=== PATIENT | female | born 1960 | race Caucasian/White ===

== ENCOUNTER 2017-08-24 07:07 | Emergency (ER) | payer MEDICAID ==
[2017-08-24] MEDS ORDERED: SODIUM CHLORIDE 0.9% 500 ML IV ONE (07:18)
[2017-08-24] MEDS ORDERED: ONDANSETRON HCL IV 4 MG/2 ML VIAL IV ONE (07:18)
--- NOTE | 2017-08-24 07:23 | Emergency Department Record ---
History of Present Illness - General Chief Complaint: Abdominal Pain Stated Complaint: RIGHT SIDE PAIN Time Seen by Provider: 08/24/17 07:13 Source: Patient Mode of Arrival: Ambulatory Limitations: No limitations - History of Present Illness Initial Comments: The patient is here due to R flank pain for 4 days. The pain is sharp and stabbing and starts in the RLQ and radiates to the R lower flank. It is not worse with any movement or bending and she denies any L sided AP, nausea, vomiting, fever or dysuria. The pain is no worse today but she is just sick of it and wants it to go away. The patient has had a normal appetite and the pain does not seem to be related to food. MD Complaint: Flank pain Onset/Timin -: Days(s) Location: R Flank, RLQ Radiation: R flank Migration to: RLQ Severity: Severe Severity scale (1-10): 8 Quality: Stabbing Consistency: Constant Improves With: Nothing Worsens With: Nothing Associated Symptoms: Denies other symptoms - Related Data Patient : No Previous Rx's Medication Instructions Recorded Cyclobenzaprine HCl [Flexeril] 10 mg PO TID PRN #20 tablet 08/24/17 Naproxen [Naprosyn] 500 mg PO BID #14 tablet. 08/24/17 Allergies Allergy/AdvReac Type Severity Reaction Status Date / Time codeine [CODEINE] Allergy Unknown VOMITING Verified 08/24/17 07:12 Travel Screening - Travel/Exposure Within Last 30 Days Have you traveled within the last 30 days?: No Review of Systems Constitutional: Denies: Chills, Fever Eyes: Denies: Eye discharge ENT: Denies: Congestion Respiratory: Denies: Cough, Dyspnea Past Medical History - SOCIAL HISTORY Smoking Status: Heavy tobacco smoker (>10/day) Alcohol Use: None Drug Use: None - RESPIRATORY Hx Respiratory Disorders: No - CARDIOVASCULAR Hx Cardio Disorders: Yes Hx Hypertension: Yes - NEURO Hx Neuro Disorders: No - GI Hx GI Disorders: Yes Hx Reflux: Yes Hx Pancreatitis: Yes Comment:: last episode 01/2014 - Hx Genitourinary Disorders: No - ENDOCRINE Hx Endocrine Disorders: No - MUSCULOSKELETAL Hx Musculoskeletal Disorders: No - PSYCH Hx Psych Problems: No - HEMATOLOGY/ONCOLOGY Hx Hematology/Oncology Disorders: No Family Medical History Any Significant Family History?: Yes Hx Dementia: Grandparents Physical Exam - General General Appearance: Alert, Oriented x3, Cooperative, No acute distress - Head Head exam: Atraumatic, Normocephalic, Normal inspection - Eye Eye exam: Normal appearance, PERRL - Neck Neck exam: Normal inspection, Full ROM. negative: Tenderness - Respiratory Respiratory exam: Normal lung sounds bilaterally. negative: Respiratory distress - Cardiovascular Cardiovascular Exam: Regular rate, Normal rhythm, Normal heart sounds - GI/Abdominal GI/Abdominal exam: Soft, Tenderness (There is mild RLQ tenderness mainly laterally. The abdomen is very soft.). negative: Rebound, Rigid - Extremities Extremities exam: Normal inspection, Full ROM, Normal capillary refill. negative: Tenderness Image of Full Body: 1 - Area of pain and tenderness. 2 - Area of pain and tenderness. - Back Back exam: Reports: Normal inspection, Paraspinal tenderness (There is lateral R flank tenderness just above the pelvic bone.). Denies: Vertebral tenderness - Neurological Neurological exam: Normal gait. negative: Abnormal gait Course Vital Signs 08/24/17 07:10 Temperature 97.5 F L Pulse Rate 94 H Respiratory 20 Rate Blood Pressure 135/99 Pulse Ox 96 - Reevaluation(s) Reevaluation #1: the patient is doing better at this time. Her pain is much improved but is still present. On exam the main tender area is now posteriorly above the pelvic iliac wing. I did explain to her that her results do not point to any significant surgical pathology. She is to rest at home and take the pain medicine and muscle relaxer and see her PCP for recheck. 08/24/17 08:51 Medical Decision Making - Data Complexity MDM Data: Labs Ordered and/or Reviewed, X-Ray Ordered and/or Reviewed - Lab Data Result diagrams: 08/24/17 07:20 08/24/17 07:20 - Radiology Data Radiology results: Report reviewed (CT: Neg for any acute pathology over the R lower abdomen. Neg for stone or appendicitis. There is a L adnexal cyst which I did discuss with the patient.) Disposition Disposition: Discharge Clinical Impression: Abdominal pain Qualifiers: Abdominal location: unspecified location Qualified Code(s): R10.9 - Unspecified abdominal pain Disposition: Home, Self-Care Condition: (2) Stable Instructions: Abdominal Pain (ED) Additional Instructions: Please take the Naprosyn and Flexeril for pain. Please see your family doctor for recheck and discuss the L ovary cyst and gallstones. Please return to the ER for any worsening symptoms, increased pain, fever or vomiting. Prescriptions: Cyclobenzaprine HCl [Flexeril] 10 mg PO TID PRN #20 tablet PRN Reason: Pain Naproxen [Naprosyn] 500 mg PO BID #14 tablet.dr Forms: Patient Portal Access Time of Disposition: 08:54 Quality - Quality Measures Quality Measures: N/A - Blood Pressure Screening View Details: Yes Does Patient Have Any of the Following: No Blood Pressure Classification: Hypertensive Reading Systolic Measurement: 135 Diastolic Measurement: 99 Screening for High Blood Pressure: < First Hypertensive BP, F/U Documented > [ G8950] First Hypertensive Follow-up Interventions: Referral to alternative/primary care provider.
[2017-08-24 07:33] LABS: BASO % 0.9 % (0-6); EOS % 4.1 % (0-6); GRAN % 44.6 % (47-80); HEMATOCRIT 44.6 % (35.0-47.0); HEMOGLOBIN 15.2 gm/dl (11.6-16.0); LYMPH % 39.2 % (16-45); MEAN CELL VOLUME 95.5 fl (81-97); MEAN CORPUSCULAR HEMOGLOBIN 32.5 pg (27-33); MEAN CORPUSCULAR HGB CONC 34.1 g/dl (32-36); MEAN PLATELET VOLUME 10.9 fl (7.4-10.4); MONO % 11.2 % (0-9); PLATELET COUNT 286 K/uL (130-400); RED BLOOD COUNT 4.67 M/uL (3.80-5.40); RED CELL DISTRIBUTION WIDTH 13.4 % (11.5-14.5); WHITE BLOOD COUNT W/O DIFF 6.5 K/uL (4.2-12.2)
[2017-08-24 07:35] LABS: URINE APPEARANCE CLEAR; URINE BILIRUBIN SMALL (NEGATIVE); URINE BLOOD NEGATIVE (NEGATIVE); URINE COLOR YELLOW; URINE GLUCOSE (UA) NEGATIVE (NEGATIVE); URINE KETONE NEGATIVE (NEGATIVE); URINE LEUKOCYTE ESTERASE NEGATIVE (NEGATIVE); URINE NITRITE NEGATIVE (NEGATIVE); URINE PROTEIN NEGATIVE (NEGATIVE); URINE UROBILINOGEN 0.2 E.U./dL (0.20 - 1.00)
[2017-08-24 07:45] LABS: BLOOD UREA NITROGEN 14 mg/dL (6-20); CREATININE 0.6 mg/dL (0.5-0.9); EST GLOMERULAR FILTRATION RATE > 60 mL/min
[2017-08-24 07:46] LABS: TOTAL PROTEIN 7.2 g/dL (6.6-8.7)
[2017-08-24 07:48] LABS: GLUCOSE,RANDOM 116 mg/dL (74-109)
[2017-08-24 07:50] LABS: ALBUMIN 4.3 g/dL (4.0-5.0); ALKALINE PHOSPHATASE 90 U/L (35-104); ALT/SGPT 18 U/L (<33); AST/SGOT 28 U/L (10.0-35.0)
[2017-08-24 07:51] LABS: LIPASE 16 U/L (13-60)
[2017-08-24 07:53] LABS: BILIRUBIN,DIRECT < 0.2 mg/dL (0-0.3)
[2017-08-24] MEDS ORDERED: KETOROLAC 30 MG/ML VIAL IVP ONE (07:54)
[2017-08-24] MEDS ORDERED: ACETAMINOPHEN 1,000 MG/100 ML BTL IVPB ONE (08:17)
--- NOTE | 2017-08-25 07:56 | CT SCAN REPORT ---
EXAM: EMERGENCY CT OF THE ABDOMEN AND PELVIS HISTORY: RIGHT FLANK PAIN, ACHING RIGHT LOWER QUADRANT PAIN FOR FOUR DAYS RADIATING POSTERIORLY. TECHNIQUE: Axial CT scan of the abdomen and pelvis was performed without oral or IV contrast. Comparison: CT of the abdomen and pelvis 09/23/15. FINDINGS: There is a single tiny calcification on the lower pole of the left kidney also present previously consistent with a tiny nonobstructing calculus. No other intrarenal calculi seen on either side. No hydronephrosis or hydroureter is seen on either side with no definite ureteral calculus seen on either side and no bladder calculus evident. Several uterine calcifications are again seen similar to before likely representing leiomyomatous involvement of the uterus. Relatively large low attenuation mass in the left adnexa again seen, previously measured at 5 cm in diameter and today measuring slightly smaller at about 4.3 cm, probably with some dilatation of the left fallopian tube as before as well. Recommend correlation with prior work-up. Appearance suspicious for some tiny calcified gallstones in the dependent portion of the gallbladder. No definite additional findings to suggest acute cholecystitis currently. Evaluation of the bowel and viscera is considerably limited without oral or IV contrast. Given this limitation, no definite hepatic, splenic, adrenal, or pancreatic mass identified. Moderate diverticulosis scattered throughout the colon, but no diverticulitis evident. The appendix is visualized and appears negative with no appendicitis evident. No free intraperitoneal air or free intraperitoneal fluid identified. Prominent facet joint arthropathy in the mid to lower lumbar spine and some spurring in the lower thoracic spine. IMPRESSION: 1. SINGLE TINY NONOBSTRUCTING CALCULUS LOWER POLE LEFT KIDNEY. NO HYDRONEPHROSIS OR URETERAL CALCULUS ON EITHER SIDE. 2. THE APPENDIX APPEARS NEGATIVE. 3. SCATTERED DIVERTICULOSIS THROUGHOUT THE COLON, BUT NO DIVERTICULITIS EVIDENT. 4. POSSIBLE CHOLELITHIASIS. THIS COULD BE FURTHER ASSESSED WITH A CURRENT GALLBLADDER ULTRASOUND IF CLINICALLY DESIRED. 5. PROBABLE SMALL CALCIFIED UTERINE LEIOMYOMAS BEFORE. 6. RELATIVELY LARGE LOW ATTENUATION MASS LEFT ADNEXA PRESUMABLY SOME FORM OF OVARIAN/ADNEXAL CYST, ACTUALLY SLIGHTLY SMALLER THAN BACK ON 09/23/15. THERE IS PROBABLY DILATATION OF THE LEFT FALLOPIAN TUBE WELL ALSO NOTED PREVIOUSLY. RECOMMEND CORRELATION WITH PRIOR GYNECOLOGIC WORK-UP. JOB NUMBER: [id number] [facility]
== END 2017-08-24 09:07 | disposition home or self-care (01) ==
LOC: ER 07:07
DX: R10.31 Right lower quadrant pain (principal); M54.5 Low back pain; N83.8 Other noninflammatory disorders of ovary, fallopian tube and broad ligament; I10 Essential (primary) hypertension; F17.210 Nicotine dependence, cigarettes, uncomplicated
CPT/HCPCS: 99284 ×2; 96374; 96375; 83690; 85025; 80076; 80048; 81003; 74176; J1885; J2405

== ENCOUNTER 2018-01-23 19:47 | Observation (INO) | payer MEDICAID ==
[2018-01-23] MEDS ORDERED: ONDANSETRON HCL IV 4 MG/2 ML VIAL IVP ONE (20:15)
[2018-01-23] MEDS ORDERED: 0.9 % SODIUM CHLORIDE 1000ML 1,000 ML IV SCH (20:15)
[2018-01-23] MEDS ORDERED: LORAZEPAM 2 MG/ML VIAL IV ONE (20:15)
--- NOTE | 2018-01-23 20:19 | Emergency Department Record ---
History of Present Illness - General Chief complaint: Nausea, Vomiting, Diarrhea Stated complaint: NAUSEA AND VOMITING Time Seen by Provider: 01/23/18 20:13 Source: Patient Mode of Arrival: Ambulatory Limitations: No limitations - History of Present Illness Initial comments: 57 yo female presents to ED for evaluation of nausea, vomiting, and loose stools that began 2-3 weeks ago, worsened today. Patient reports "I think it's my pancreas". Patient reports similar symptoms previously related to alcohol abuse. Patient reports that she drinks "a lot"daily, reports her last drink was this morning. Patient reports previous history of pancreatitis with similar symptoms, denies previous cholecystectomy. MD complaint: Abdominal pain, Nausea, Vomiting Onset/Timin -: Week(s) Description of Vomiting: Bilious Description of Diarrhea: Other Associated Abdominal Pain: Yes Location: LUQ Radiation: None Severity: Moderate Severity scale (1-10): 6 Quality: Aching Consistency: Intermittent Improves with: None Worsens with: Movement, Other Context: Alcohol abuse Associated Symptoms: Nausea/vomiting - Related Data Previous Rx's Medication Instructions Recorded Cyclobenzaprine HCl [Flexeril] 10 mg PO TID PRN #20 tablet 08/24/17 Naproxen [Naprosyn] 500 mg PO BID #14 tablet. 08/24/17 Allergies Allergy/AdvReac Type Severity Reaction Status Date / Time codeine [CODEINE] Allergy Unknown VOMITING Verified 08/24/17 07:12 Travel Screening - Travel/Exposure Within Last 30 Days Have you traveled within the last 30 days?: No - Travel Symptoms Symptom Screening: Diarrhea, Vomiting Review of Systems Constitutional: Denies: Chills, Fever, Malaise, Night sweats Eyes: Denies: Eye discharge, Eye pain ENT: Denies: Congestion, Ear pain, Epistaxis Respiratory: Denies: Cough, Dyspnea Cardiovascular: Denies: Chest pain, Dyspnea on exertion Endocrine: Denies: Fatigue, Heat or cold intolerance Gastrointestinal: Reports: Abdominal pain, Diarrhea, Nausea, Vomiting Genitourinary: Denies: Incontinence, Retention Musculoskeletal: Denies: Arthralgia, Back pain Skin: Denies: Bruising, Change in color Neurological: Denies: Abnormal gait, Confusion, Headache, Seizure Psychiatric: Denies: Anxiety Hematological/Lymphatic: Denies: Anemia, Blood Clots Past Medical History - SOCIAL HISTORY Smoking Status: Heavy tobacco smoker (>10/day) Alcohol Use: Heavy Drug Use: None - RESPIRATORY Hx Respiratory Disorders: No - CARDIOVASCULAR Hx Cardio Disorders: Yes Hx Hypertension: Yes - NEURO Hx Neuro Disorders: No - GI Hx GI Disorders: Yes Hx Reflux: Yes Hx Pancreatitis: Yes Comment:: last episode 01/2014 - Hx Genitourinary Disorders: No - ENDOCRINE Hx Endocrine Disorders: No - MUSCULOSKELETAL Hx Musculoskeletal Disorders: No - PSYCH Hx Psych Problems: No - HEMATOLOGY/ONCOLOGY Hx Hematology/Oncology Disorders: No Family Medical History Any Significant Family History?: Yes Hx Dementia: Grandparents Physical Exam - General General Appearance: Alert, Oriented x3, Cooperative, Moderate distress, Other ( Mild resting tremor on examination) Limitations: No limitations - Head Head exam: Atraumatic, Normocephalic, Normal inspection Head exam detail: negative: Abrasion, Contusion, Jiang's sign, General tenderness, Hematoma, Laceration - Eye Eye exam: Normal appearance. negative: Conjunctival injection, Periorbital swelling, Periorbital tenderness, Scleral icterus - ENT Ear exam: negative: Auricular hematoma, Auricular trauma Nasal Exam: negative: Active bleeding, Discharge, Dried blood, Foreign body Mouth exam: negative: Drooling, Laceration, Muffled voice, Tongue elevation - Neck Neck exam: Normal inspection. negative: Meningismus, Tenderness - Respiratory Respiratory exam: Normal lung sounds bilaterally. negative: Rales, Respiratory distress, Rhonchi, Stridor - Cardiovascular Cardiovascular Exam: Regular rate, Normal rhythm, Normal heart sounds - GI/Abdominal GI/Abdominal exam: Soft, Tenderness (TTP to the epigastric region, no rebound/ guarding present.). negative: Rebound, Rigid - Rectal Rectal exam: Deferred - exam: Deferred - Extremities Extremities exam: Normal inspection. negative: Pedal edema, Tenderness - Back Back exam: Denies: CVA tenderness (R), CVA tenderness (L) - Neurological Neurological exam: Alert, Normal gait, Oriented X3 - Psychiatric Psychiatric exam: Normal affect, Normal mood - Skin Skin exam: Normal color. negative: Abrasion Type of lesion: negative: abrasion Course Vital Signs 01/23/18 20:00 Temperature 98.8 F Pulse Rate 96 H Respiratory 20 Rate Blood Pressure 124/88 Pulse Ox 95 - Reevaluation(s) Reevaluation #1: 01/23/18 20:49 Laboratory studies were reviewed: Lipase 15 AST 318 ALT 188 Alk phos 224 Alcohol 0.049 Potassium 3.2 IVFs infusing, will replace potassium via IV. Reevaluation #2: 01/23/18 21:00 Patient was reassessed, reports that her symptoms are improved. Will admit for electrolyte repletion and IVF resuscitation overnight. Patient agrees with the plan of care as discussed. Reevaluation #3: 01/23/18 21:30 Case was discussed with Andreea Kyle, will accept admission at this time. Medical Decision Making - Lab Data Result diagrams: 01/23/18 20:09 01/23/18 20:09 Disposition Disposition: Admit Clinical Impression: Alcohol abuse, Elevated liver enzymes, Dehydration Nausea & vomiting Qualifiers: Vomiting type: unspecified Vomiting Intractability: non-intractable Qualified Code(s): R11.2 - Nausea with vomiting, unspecified Disposition: Still a Patient at [facility] Decision to Admit: Admit from ER Decision to Admit Date: 01/23/18 Decision to Admit Time: 20:51 Condition: (2) Stable Forms: Patient Portal Access Time of Disposition: 20:51 Quality - Quality Measures Quality Measures: N/A - Blood Pressure Screening Does Patient Have Any of the Following: No Blood Pressure Classification: Pre-Hypertensive BP Reading Systolic Measurement: 124 Diastolic Measurement: 88 Screening for High Blood Pressure: < Pre-Hypertensive BP, F/U Documented > [ G8950] Pre-Hypertensive Follow-up Interventions: Referral to alternative/primary care provider.
[2018-01-23 20:22] LABS: HEMATOCRIT 42.6 % (35.0-47.0); HEMOGLOBIN 15.3 gm/dl (11.6-16.0); MEAN CELL VOLUME 98.8 fl (81-97); MEAN CORPUSCULAR HEMOGLOBIN 35.5 pg (27-33); MEAN CORPUSCULAR HGB CONC 35.9 g/dl (32-36); MEAN PLATELET VOLUME 11.3 fl (7.4-10.4); PLATELET COUNT 190 K/uL (130-400); RED BLOOD COUNT 4.31 M/uL (3.80-5.40); RED CELL DISTRIBUTION WIDTH 13.8 % (11.5-14.5); WHITE BLOOD COUNT W/O DIFF 7.7 K/uL (4.2-12.2)
[2018-01-23 20:32] LABS: BLOOD UREA NITROGEN 9 mg/dL (6-20); CREATININE 0.6 mg/dL (0.5-0.9); EST GLOMERULAR FILTRATION RATE > 60 mL/min
[2018-01-23 20:35] LABS: GLUCOSE,RANDOM 108 mg/dL (74-109)
[2018-01-23 20:37] LABS: ALB/GLOB RATIO 1.4 (1.1-1.8); ALBUMIN 4.1 g/dL (4.0-5.0); ALKALINE PHOSPHATASE 224 U/L (35-104); ALT/SGPT 188 U/L (<33); AST/SGOT 318 U/L (10.0-35.0); LIPASE 15 U/L (13-60)
[2018-01-23] MEDS ORDERED: MVI, ADULT NO.4 WITH VIT K 10 ML, THIAMINE HCL IV 100 MG in SOD CHLOR 0.9% WITH KCL 40M... IV ONE ×3 (20:50)
[2018-01-23] MEDS ORDERED: LORAZEPAM 2 MG/ML VIAL IV PRN ×2 (21:44→22:00)
[2018-01-23] MEDS ORDERED: ONDANSETRON HCL IV 4 MG/2 ML VIAL IVP PRN ×2 (21:44→22:00)
[2018-01-23] MEDS ORDERED: 0.9 % SODIUM CHLORIDE 1000ML 1,000 ML IV PRN (21:44)
[2018-01-23] MEDS ORDERED: Non-Formulary MISC (Omeprazole [Prilosec] 20 MG) PO SCH (21:44)
[2018-01-23] MEDS: ACETAMINOPHEN 500 MG TABLET PO PRN (22:36)
[2018-01-23] MEDS: CALCIUM CARBONATE 500 MG TAB.CHEW PO PRN (22:53)
[2018-01-23] MEDS ORDERED: NICOTINE14 MG/24 HOUR PATCH TD SCH (23:00)
[2018-01-24] MEDS: 0.9 % SODIUM CHLORIDE 1000ML 1,000 ML IV PRN ×2 (04:21→12:21)
[2018-01-24 06:33] LABS: ALB/GLOB RATIO 1.5 (1.1-1.8); ALBUMIN 3.4 g/dL (4.0-5.0); ALKALINE PHOSPHATASE 182 U/L (35-104); ALT/SGPT 155 U/L (<33); AST/SGOT 293 U/L (10.0-35.0); BLOOD UREA NITROGEN 10 mg/dL (6-20); CREATININE 0.5 mg/dL (0.5-0.9); EST GLOMERULAR FILTRATION RATE > 60 mL/min; GLUCOSE,RANDOM 87 mg/dL (74-109); TOTAL PROTEIN 5.6 g/dL (6.6-8.7)
[2018-01-24] MEDS: ACETAMINOPHEN 500 MG TABLET PO PRN (06:45)
[2018-01-24] MEDS ORDERED: PANTOPRAZOLE SODIUM 40 MG TABLET PO SCH (07:00)
[2018-01-24] MEDS ORDERED: NICOTINE14 MG/24 HOUR PATCH TD SCH (09:00)
[2018-01-24] MEDS ORDERED: KETOROLAC 30 MG/ML VIAL IVP PRN (09:39)
[2018-01-24] MEDS: CALCIUM CARBONATE 500 MG TAB.CHEW PO PRN (10:12)
--- NOTE | 2018-01-24 10:50 | History & Physical ---
History of Present Illness - Date of Service Date of Service for History & Physical: 01/24/18 - History of Present Illness Admitting Diagnosis: Alcoholic hepatitis. Nausea/vomiting. Dehydration. Alcohol abuse History of Present Illness: 57 year old female presented to ED for evaluation of nausea, vomiting, and loose stools that have been present for 2-3 weeks. Patient states she has had 1 episode of vomiting/diarrhea daily over the past 2 weeks. However, on Thursday, symptoms worsened, with multiple episodes of vomiting and diarrhea throughout the day. Patient states she has a history of pancreatitis and reports that symptoms feel similar to previous episodes. Patient admits to drinking 1 pint of alcohol daily and smoking 1.5 packs per day. Patient denies any additional medical history. States she went to addiction rehab in May but has since started smoking again. Patient's previous PCP was at [facility], but states she has not seen anyone there in awhile. ED Course: VS: Temp 98.8F, HR 96, RR 20, BP 124/88, Pulse Ox 95% Lipase 15, AST 318, ALT 188, Alk Phos 224, Alcohol 0.049, Potassium 3.2 IV fluid hydration Zofran IVP prn 01/24/18: Patient A&O x 4, resting in bed. Patient complains of headache and generalized body aches at this time. States she has not had any vomiting since admission, but has had 1 episode of diarrhea this morning. Reports no appetite at this time and has not had any PO fluids at this time. Denies generalized abdominal pain, no pain with palpation at this time. Will proceed with IV hydration and trial PO intake. Travel Screening - Travel/Exposure Within Last 30 Days Have you traveled within the last 30 days?: No - Travel/Exposure Within Last Year Have you traveled outside the [place] in the last year?: No - Additonal Travel Details Have you been exposed to anyone with a communicable illness?: No - Travel Symptoms Symptom Screening: Diarrhea, Vomiting Review of Systems Reviewed: No additional complaints except as noted below Constitutional: Denies: Chills, Fever, Malaise, Night sweats Eyes: Denies: Eye discharge, Eye pain ENT: Denies: Congestion, Ear pain, Epistaxis Respiratory: Denies: Cough, Dyspnea Cardiovascular: Denies: Chest pain, Dyspnea on exertion Endocrine: Denies: Fatigue, Heat or cold intolerance Gastrointestinal: Reports: Abdominal pain, Diarrhea, Nausea, Vomiting Genitourinary: Denies: Incontinence, Retention Musculoskeletal: Denies: Arthralgia, Back pain Skin: Denies: Bruising, Change in color Neurological: Denies: Abnormal gait, Confusion, Headache, Seizure Psychiatric: Denies: Anxiety Hematological/Lymphatic: Denies: Anemia, Blood Clots Past Medical History - SOCIAL HISTORY Smoking Status: Heavy tobacco smoker (>10/day) Alcohol Use: Heavy Alcohol Use Comment: 1.5 pints vodka/day Drug Use: None - RESPIRATORY Hx Respiratory Disorders: No - CARDIOVASCULAR Hx Cardio Disorders: Yes Hx Hypertension: Yes - NEURO Hx Neuro Disorders: No - GI Hx GI Disorders: Yes Hx Reflux: Yes Hx Pancreatitis: Yes Comment:: last episode 01/2014 - Hx Genitourinary Disorders: No - ENDOCRINE Hx Endocrine Disorders: No - MUSCULOSKELETAL Hx Musculoskeletal Disorders: No - PSYCH Hx Psych Problems: No - HEMATOLOGY/ONCOLOGY Hx Hematology/Oncology Disorders: No Family Medical History Any Significant Family History?: Yes Hx Dementia: Grandparents H&P Meds/Allergies - Allergies Allergies: Allergies Allergy/AdvReac Type Severity Reaction Status Date / Time codeine [CODEINE] Allergy Unknown VOMITING Verified 08/24/17 07:12 - Home Medications Previous Rx's Medication Instructions Recorded Cyclobenzaprine HCl [Flexeril] 10 mg PO TID PRN #20 tablet 08/24/17 Naproxen [Naprosyn] 500 mg PO BID #14 tablet. 08/24/17 - Active Medications Active Medications: Current Medications Acetaminophen (Tylenol 500mg Tab) 1,000 mg PO Q8H PRN PRN Reason: PAIN - MILD (1-4) Last Admin: 01/24/18 06:45 Dose: 1,000 mg Calcium Carbonate/Glycine (Tums) 1,000 mg PO Q4H PRN PRN Reason: GI UPSET Last Admin: 01/24/18 10:12 Dose: 1,000 mg Sodium Chloride () 1,000 mls @ 0 mls/hr IV .Q0M [id number] Last Infusion: 01/23/18 21:34 Dose: Infused Sodium Chloride () 1,000 mls @ 125 mls/hr IV .Q8H PRN PRN Reason: LARGE VOLUME IV Last Admin: 01/24/18 04:21 Dose: 125 mls/hr Ketorolac Tromethamine (Toradol) 30 mg IVP Q8H PRN PRN Reason: HEADACHE Last Admin: 01/24/18 09:59 Dose: 30 mg Lorazepam (Ativan) 2 mg IV Q2H PRN PRN Reason: ANXIETY Nicotine (Nicotine 14mg) 1 patch TD 0900 [facility] Last Admin: 01/24/18 10:01 Dose: 1 patch Ondansetron HCl (Zofran) 4 mg IVP Q4H PRN PRN Reason: NAUSEA Last Admin: 01/24/18 01:23 EST Dose: 4 mg Pantoprazole Sodium (Protonix) 40 mg PO DAILYAC [facility] Last Admin: 01/24/18 06:45 Dose: 40 mg Physical Exam - Vital Signs Vital Signs: Vital Signs - Last 24 Hrs Temp Pulse Pulse Resp BP BP Pulse Ox 01/24/18 09:00 74 16 01/24/18 08:56 98.2 F 74 16 140/83 95 01/24/18 06:00 97.8 F 95 H 18 143/82 94 L 01/24/18 02:44 97.8 F 88 18 122/79 94 L 01/23/18 22:27 18 01/23/18 22:00 98.1 F 104 H 18 139/95 95 01/23/18 20:52 98.2 F 90 20 134/78 98 01/23/18 20:00 98.8 F 96 H 20 124/88 95 - General General Appearance: Alert, Oriented x3, Cooperative, No acute distress Limitations: No limitations - Head Head exam: Atraumatic, Normocephalic, Normal inspection Head exam detail: negative: Abrasion, Contusion, Jiang's sign, General tenderness, Hematoma, Laceration - Eye Eye exam: Normal appearance. negative: Conjunctival injection, Periorbital swelling, Periorbital tenderness, Scleral icterus - ENT Ear exam: negative: Auricular hematoma, Auricular trauma Nasal Exam: negative: Active bleeding, Discharge, Dried blood, Foreign body Mouth exam: Normal external inspection, Tongue normal. negative: Drooling, Laceration, Muffled voice, Tongue elevation - Neck Neck exam: Normal inspection. negative: Meningismus, Tenderness - Respiratory Respiratory exam: Normal lung sounds bilaterally. negative: Rales, Respiratory distress, Rhonchi, Stridor - Cardiovascular Cardiovascular Exam: Regular rate, Normal rhythm, Normal heart sounds Peripheral Pulses: 2+: Radial (R), Radial (L), Dorsalis Pedis (R), Dorsalis Pedis (L) - GI/Abdominal GI/Abdominal exam: Soft, Hyperactive bowel sounds. negative: Rebound, Rigid, Tenderness - Rectal Rectal exam: Deferred - exam: Deferred - Extremities Extremities exam: Normal inspection. negative: Pedal edema, Tenderness - Back Back exam: Denies: CVA tenderness (R), CVA tenderness (L) - Neurological Neurological exam: Alert, Normal gait, Oriented X3 - Psychiatric Psychiatric exam: Normal affect, Normal mood - Skin Skin exam: Normal color. negative: Abrasion Type of lesion: negative: abrasion Results - Labs Result Diagrams: 01/23/18 20:09 01/24/18 06:05 Labs Last 24 Hours: Laboratory Results - last 24 hr 01/23/18 01/23/18 01/23/18 20:09 20:09 20:09 WBC 7.7 RBC 4.31 Hgb 15.3 Hct 42.6 MCV 98.8 H MCH 35.5 H MCHC 35.9 RDW 13.8 Plt Count 190 MPV 11.3 H Neutrophils % 80.0 Eosinophils % Not Reportable Basophils % Not Reportable Lymphocytes 14.0 L Monocytes 6.0 Sodium 139 Potassium 3.2 L Chloride 94 L Carbon Dioxide 23.0 Anion Gap 22.0 H BUN 9 Creatinine 0.6 Estimated GFR > 60 Random Glucose 108 Lactic Acid Cancelled Calcium 9.2 Total Bilirubin 2.90 H AST 318 H ALT 188 H Alkaline Phosphatase 224 H Total Protein 7.0 Albumin 4.1 Globulin 2.9 Albumin/Globulin Ratio 1.4 Lipase 15 Ethyl Alcohol 0.049 H 01/23/18 01/24/18 01/24/18 20:09 06:05 06:20 WBC RBC Hgb Hct MCV MCH MCHC RDW Plt Count MPV Neutrophils % Eosinophils % Basophils % Lymphocytes Monocytes Sodium 141 Potassium 4.1 Chloride 103 Carbon Dioxide 26.0 Anion Gap 12.0 BUN 10 Creatinine 0.5 Estimated GFR > 60 Random Glucose 87 Lactic Acid 4.1 H 1.1 Calcium 8.1 L Total Bilirubin 3.20 H AST 293 H ALT 155 H Alkaline Phosphatase 182 H Total Protein 5.6 L Albumin 3.4 L Globulin 2.2 Albumin/Globulin Ratio 1.5 Lipase Ethyl Alcohol VTE H&P Assessment - Risk for VTE Risk for VTE: Yes Risk Level: Moderate Risk Assessment Date: 01/24/18 Risk Assessment Time: 10:51 VTE Orders Placed or Will Be Placed: Yes Plan - Detailed Diagnosis and Plan (1) Nausea & vomiting Current Visit: Yes Status: Acute Qualifiers: Vomiting type: unspecified Vomiting Intractability: non-intractable Qualified Code(s): R11.2 - Nausea with vomiting, unspecified Base Code: R11.2 - NAUSEA WITH VOMITING, UNSPECIFIED Comment: 01/24/18: Patient presented to ED with persistent nausea, vomiting, and diarrhea x 2 weeks , that has worsened over the past 24 hours. Patient unable to tolerate PO intake, multiple episodes of vomiting and diarrhea yesterday - IV hydration with NS @125ml/hr - Zofran IVP prn - K 3.2 and lactic acid 4.1 upon admission, likely due to dehyration. Repeat labs indicate K of 4.1 and lactic acid of 1.1 - Lipase normal at 15, pancreatitis likely not cause of current illness - Hep A ordered, results pending (2) Elevated liver enzymes Current Visit: Yes Status: Acute Base Code: R74.8 - ABNORMAL LEVELS OF OTHER SERUM ENZYMES Comment: 01/24/18: -AST 318, ALT 188, Alk Phos 224 upon admission - Repeat labs: AST 293, ALT 155, Alk phos 182 - Elevation likely due to ETOH abuse - Hep C negative - Previous liver enzymes in 2017 elevated, with AST 250, ALT 156, Alk Phos 127 (3) Alcohol abuse Current Visit: Yes Status: Acute Base Code: F10.10 - ALCOHOL ABUSE, UNCOMPLICATED Comment: 01/24/18: History of ETOH abuse, reports drinking 1 pint per day - CIWA scale q4h, ativan prn. Has not yet required any ativan - Alcohol 0.049 at admission - Discussed quitting drinking, patient has previously attended rehab, no current treatment or plans to quit (4) DVT prophylaxis Current Visit: Yes Status: Acute Base Code: [id number] - Comment: 01/24/18: Moderat risk due to age, hospitalization, and decreased mobility -Lovenox 40mg SQ daily (5) Full code status Current Visit: Yes Status: Acute Base Code: Z78.9 - OTHER SPECIFIED HEALTH STATUS Comment: 01/24/18: Patient is a full code this admission
--- NOTE | 2018-01-24 14:20 | Discharge Summary ---
Providers Discharge Summary Date: 01/24/18 Date of admission: 01/23/18 21:59 Expected Date of Discharge: 01/24/18 Attending physician: TIRSO JHAVERI Primary care physician: [facility] Family Practice Physical Exam - Vital Signs Vital Signs: Vital Signs - Last 24 Hrs Temp Pulse Pulse Resp BP BP Pulse Ox 01/24/18 14:00 98.1 F 93 H 18 143/92 93 L 01/24/18 09:00 74 16 01/24/18 08:56 98.2 F 74 16 140/83 95 01/24/18 06:00 97.8 F 95 H 18 143/82 94 L 01/24/18 02:44 97.8 F 88 18 122/79 94 L 01/23/18 22:27 18 01/23/18 22:00 98.1 F 104 H 18 139/95 95 01/23/18 20:52 98.2 F 90 20 134/78 98 01/23/18 20:00 98.8 F 96 H 20 124/88 95 - General General Appearance: Alert, Oriented x3, Cooperative, No acute distress Limitations: No limitations - Head Head exam: Atraumatic, Normocephalic, Normal inspection Head exam detail: negative: Abrasion, Contusion, Jiang's sign, General tenderness, Hematoma, Laceration - Eye Eye exam: Normal appearance. negative: Conjunctival injection, Periorbital swelling, Periorbital tenderness, Scleral icterus - ENT Ear exam: negative: Auricular hematoma, Auricular trauma Nasal Exam: negative: Active bleeding, Discharge, Dried blood, Foreign body Mouth exam: Normal external inspection, Tongue normal. negative: Drooling, Laceration, Muffled voice, Tongue elevation - Neck Neck exam: Normal inspection. negative: Meningismus, Tenderness - Respiratory Respiratory exam: Normal lung sounds bilaterally. negative: Rales, Respiratory distress, Rhonchi, Stridor - Cardiovascular Cardiovascular Exam: Regular rate, Normal rhythm, Normal heart sounds Peripheral Pulses: 2+: Radial (R), Radial (L), Dorsalis Pedis (R), Dorsalis Pedis (L) - GI/Abdominal GI/Abdominal exam: Soft, Hyperactive bowel sounds. negative: Rebound, Rigid, Tenderness - Rectal Rectal exam: Deferred - exam: Deferred - Extremities Extremities exam: Normal inspection. negative: Pedal edema, Tenderness - Back Back exam: Denies: CVA tenderness (R), CVA tenderness (L) - Neurological Neurological exam: Alert, Normal gait, Oriented X3 - Psychiatric Psychiatric exam: Normal affect, Normal mood - Skin Skin exam: Normal color. negative: Abrasion Type of lesion: negative: abrasion Hospitalization - Hospitalization Admission Diagnosis: Alcoholic hepatitis. Nausea/vomiting. Dehydration. Alcohol abuse - Problem List/Discharge Diagnosis (1) Nausea & vomiting Current Visit: Yes Status: Acute Discharge Diagnosis: Vomiting type: unspecified Vomiting Intractability: non-intractable Qualified Code(s): R11.2 - Nausea with vomiting, unspecified Base Code: R11.2 - NAUSEA WITH VOMITING, UNSPECIFIED Comment: 01/24/18: Patient presented to ED with persistent nausea, vomiting, and diarrhea x 2 weeks , that has worsened over the past 24 hours. Patient unable to tolerate PO intake, multiple episodes of vomiting and diarrhea yesterday - IV hydration with NS @125ml/hr - Zofran IVP prn - K 3.2 and lactic acid 4.1 upon admission, likely due to dehyration. Repeat labs indicate K of 4.1 and lactic acid of 1.1 - Lipase normal at 15, pancreatitis likely not cause of current illness - Hep A ordered, results pending - Has been tolerating light PO diet (2) Elevated liver enzymes Current Visit: Yes Status: Acute Base Code: R74.8 - ABNORMAL LEVELS OF OTHER SERUM ENZYMES Comment: 01/24/18: -AST 318, ALT 188, Alk Phos 224 upon admission - Repeat labs: AST 293, ALT 155, Alk phos 182 - Elevation likely due to ETOH abuse - Hep C negative in the past - Patient to follow-up with PCP for further evaluation - Previous liver enzymes in 2017 elevated, with AST 250, ALT 156, Alk Phos 127 (3) Alcohol abuse Current Visit: Yes Status: Acute Base Code: F10.10 - ALCOHOL ABUSE, UNCOMPLICATED Comment: 01/24/18: History of ETOH abuse, reports drinking 1 pint per day - CIWA scale q4h, ativan prn. Has not yet required any ativan - Alcohol 0.049 at admission - Discussed quitting drinking, patient has previously attended rehab, no current treatment or plans to quit (4) DVT prophylaxis Current Visit: Yes Status: Acute Base Code: [id number] - Comment: 01/24/18: Moderat risk due to age, hospitalization, and decreased mobility -Lovenox 40mg SQ daily - No need for further prophylaxis upon discharge as patient will resume normal activity (5) Full code status Current Visit: Yes Status: Acute Base Code: Z78.9 - OTHER SPECIFIED HEALTH STATUS Comment: 01/24/18: Patient is a full code this admission - Hospitalization Course Disposition: Home, Self-Care Hospital Course: 57 year old female presented to ED for evaluation of nausea, vomiting, and loose stools that have been present for 2-3 weeks. Patient states she has had 1 episode of vomiting/diarrhea daily over the past 2 weeks. However, on Thursday, symptoms worsened, with multiple episodes of vomiting and diarrhea throughout the day. Patient states she has a history of pancreatitis and reports that symptoms feel similar to previous episodes. Patient admits to drinking 1 pint of alcohol daily and smoking 1.5 packs per day. Patient denies any additional medical history. States she went to addiction rehab in May but has since started smoking again. Patient's previous PCP was at [facility], but states she has not seen anyone there in awhile. ED Course: VS: Temp 98.8F, HR 96, RR 20, BP 124/88, Pulse Ox 95% Lipase 15, AST 318, ALT 188, Alk Phos 224, Alcohol 0.049, Potassium 3.2 IV fluid hydration Zofran IVP prn 01/24/18: Patient A&O x 4, resting in bed. Patient complains of headache and generalized body aches at this time. States she has not had any vomiting since admission, but has had 1 episode of diarrhea this morning. Reports no appetite at this time and has not had any PO fluids at this time. Denies generalized abdominal pain, no pain with palpation at this time. Will proceed with IV hydration and trial PO intake. UPDATE: Patient has tolerated PO intake, slowly advancing diet. Hep A ordered, results pending. Patient to follow-up with PCP in 2 weeks. Will dc with zofran and instructions to slowly advance diet and avoid alcohol. Abnormal Labs: Abnormal Lab Results 01/23/18 01/23/18 01/23/18 Range/Units 20:09 20:09 20:09 MCV 98.8 H (81-97) fl MCH 35.5 H (27-33) pg MPV 11.3 H (7.4-10.4) fl Lymphocytes 14.0 L (16-45) % Potassium 3.2 L (3.4-4.5) mmol/L Chloride 94 L (98-107) mmol/L Anion Gap 22.0 H (7-16) Lactic Acid (0.5-2.2) mmol/L Calcium (8.6-10.0) mg/dL Total Bilirubin 2.90 H (0.2-1.0) mg/dL AST 318 H (10.0-35.0) U/L ALT 188 H (<33) U/L Alkaline Phosphatase 224 H (35-104) U/L Total Protein (6.6-8.7) g/dL Albumin (4.0-5.0) g/dL Ethyl Alcohol 0.049 H (0-0.010) g/dL 01/23/18 01/24/18 Range/Units 20:09 06:05 MCV (81-97) fl MCH (27-33) pg MPV (7.4-10.4) fl Lymphocytes (16-45) % Potassium (3.4-4.5) mmol/L Chloride (98-107) mmol/L Anion Gap (7-16) Lactic Acid 4.1 H (0.5-2.2) mmol/L Calcium 8.1 L (8.6-10.0) mg/dL Total Bilirubin 3.20 H (0.2-1.0) mg/dL AST 293 H (10.0-35.0) U/L ALT 155 H (<33) U/L Alkaline Phosphatase 182 H (35-104) U/L Total Protein 5.6 L (6.6-8.7) g/dL Albumin 3.4 L (4.0-5.0) g/dL Ethyl Alcohol (0-0.010) g/dL Condition at Discharge: (2) Stable VTE Discharge VTE Reason For No Overlap Therapy: Not Indicated Discharge Medications - Discharge Medications Prescriptions: Ondansetron [Zofran Odt] 4 mg PO Q8H PRN #20 tab.rapdis PRN Reason: Nausea/Vomiting Home Medications: Ambulatory Orders Cyclobenzaprine HCl [Flexeril] 10 mg PO TID PRN #20 tablet 08/24/17 [Last Taken Unknown] Naproxen [Naprosyn] 500 mg PO BID #14 tablet. 08/24/17 [Last Taken Unknown] Ondansetron [Zofran Odt] 4 mg PO Q8H PRN #20 tab.[email or web address] 01/24/18 [Last Taken Unknown] Discharge Plan - Discharge Instructions Activity at Discharge: Increase Activity as Tolerated Diet at Discharge: Advance to Usual Diet Additional Instructions: -Slowly advance your diet as tolerated, starting with bland foods. Be sure to drink lots of water over the next few days -Take the zofran as needed for nausea/vomiting -Take your naproxen as needed for a headache. Avoid tylenol as this can further damage your liver -We tested you for Hepatitis A and will notify you if it comes back positive within the next couple of days -Avoid alcohol -Call the [facility] ([phone]) to schedule a follow-up within the next 2 weeks. Anyone there can see you even though your previous doctor left. Quality Measures - Quality Measures Quality Measures: Documentation of Current Medications in Medical Record, Screening for High Blood Pressure and F/U Documented - Current Medications Quality Measure: Measure #130: Documentation of Current Medications Documentation of Current Medications: <Current Medications Documented/Reviewed> [G8427] - Blood Pressure Screening Quality Measure: Screening for High Blood Pressure and Follow-Up Documented Does Patient Have Any of the Following: No Blood Pressure Classification: Pre-Hypertensive BP Reading Systolic Measurement: 124 Diastolic Measurement: 88 Screening for High Blood Pressure: < Pre-Hypertensive BP, F/U Documented > [ [id number]] Pre-Hypertensive Follow-up Interventions: Referral to alternative/primary care provider. - Elder Abuse Suspicion Index EASI Reference Information: Cuco CLEMENT, Nicole C, Daniele D, Rc Edi.Development and validation of a tool to assist physicians identification of elder abuse: The Elder Abuse Suspicion Index (EASI ). Journal of Elder Abuse and Neglect, 2008; 20 (3): 276-300.
[2018-01-25] MEDS ORDERED: ENOXAPARIN 40 MG/0.4 ML SYR SQ SCH (10:00)
== END 2018-01-24 15:01 | disposition home or self-care (01) ==
LOC: ER 19:47 → MEDSURG 21:59
PROVIDERS: ADMIT Internal Medicine; ATTEND Internal Medicine
DX: K70.10 Alcoholic hepatitis without ascites (principal); F10.29 Alcohol dependence with unspecified alcohol-induced disorder; R74.8 Abnormal levels of other serum enzymes; E86.0 Dehydration; K86.0 Alcohol-induced chronic pancreatitis; I10 Essential (primary) hypertension; K21.9 Gastro-esophageal reflux disease without esophagitis; F17.210 Nicotine dependence, cigarettes, uncomplicated
CPT/HCPCS: 83605 ×2; 83690; 80053 ×2; 85027; 90686; G0378 ×2; G0480; J1885; J2405 ×2; J2060; 80320; 96361; 96365; 96375; 99220; 99285; J3411; J7030